=== PATIENT | male | born 1995 | race Two or more races ===

== ENCOUNTER 2023-06-16 20:04 | Emergency (ER) | payer OTHER ==
[~2023-06-16] VITALS: Ht 182.9 cm; Wt 85.3 kg
[2023-06-16 20:41] VITALS: BP 128/75; TEMP 98; O2SAT 100
[2023-06-16] MEDS ORDERED: KETOROLAC TROMETHAMINE INJ 30 MG/ML VIAL ONE (20:54)
[2023-06-16] MEDS ORDERED: CYCLOBENZAPRINE 10 MG TABLET ONE (20:54)
[2023-06-16] MEDS ORDERED: KETOROLAC TROMETHAMINE INJ 60 MG/2 ML VIAL IM ONE (21:00)
[2023-06-16] MEDS ORDERED: CYCLOBENZAPRINE 10 MG TABLET PO ONE (21:00)
[2023-06-16] MEDS ORDERED: IBUP-1955 PO (21:22)
[2023-06-16] MEDS ORDERED: CYCL10TA9 PO (21:22)
== END 2023-06-16 21:55 | disposition home or self-care (01) ==
LOC: EDSEX 20:13 → ER 20:13
DX: S16.1XXA Strain of muscle, fascia and tendon at neck level, initial encounter (principal); F17.200 Nicotine dependence, unspecified, uncomplicated; X58.XXXA Exposure to other specified factors, initial encounter; Y93.89 Activity, other specified; Y92.89 Other specified places as the place of occurrence of the external cause; Y99.8 Other external cause status
CPT/HCPCS: 99283; 96372; 72040; J1885